=== PATIENT | male | born 1940 | race Caucasian/White ===

== ENCOUNTER 2021-02-19 13:49 | Outpatient (CLI) | payer MEDICARE, SELFPAY ==
[~2021-02-19] VITALS: Ht 182.9 cm; Wt 87.3 kg
[2021-02-19 14:09] VITALS: BP 142/85
[2021-02-19] MEDS ORDERED: ALBUTEROL 90 MCG/ACT 8GM HFA INHALER INH PRN (14:45)
[2021-02-19] MEDS ORDERED: NS 1,000 ML IV SCH (14:45)
[2021-02-19] MEDS ORDERED: methylPREDNISolone 125MG 2ML VIAL IV PRN (14:45)
[2021-02-19] MEDS ORDERED: ALBUTEROL SULFATE 2.5 MG/0.5 ML INH NEB SOLN INH PRN (14:45)
[2021-02-19] MEDS ORDERED: diphenhydrAMINE 50MG/ML VIAL (J1200) IV PRN (14:45)
[2021-02-19] MEDS ORDERED: EPINEPHrine INJ 1 MG/ML 1ML AMP IM PRN (14:45)
[2021-02-19] MEDS ORDERED: ACETAMINOPHEN TAB 650MG DOSE (2X325MG) PO PRN (14:45)
--- NOTE | 2021-02-19 14:54 | CR.PDOC ---
General Date of Consultation: Feb 19, 2021 Consultation REASON FOR CONSULTATION/CHIEF COMPLAINT: Cough, COVID-19 infection HISTORY OF PRESENT ILLNESS: 80-year-old male with a past medical history of atrial fibrillation status post pacemaker currently on Eliquis, developed a nonproductive dry cough on 02/15/2021 subsequently diagnosed with COVID-19. Patient denies any shortness of breath palpitations loss of consciousness lightheadedness dizziness or chest pain. Based on the patient's age he is a candidate for monoclonal antibody infusion. Patient was explained the risks and benefits. We discussed the risk for anaphylaxis which can be life-threatening. Patient verbalized understanding of all risks and benefits and consent was signed. Patient's vital signs were reviewed he was saturating 100% on room air was normotensive and not tachycardic. He was afebrile at the time of my examination. ALLERGIES: Please see below. HOME MEDICATIONS: Please see below. PAST MEDICAL HISTORY: atrial fibrillation s/p pacemaker, on eliquis PAST SURGICAL HISTORY: inguinal hernia repair with mesh FAMILY HISTORY: reviewed with patient, reported no family history SOCIAL HISTORY: Patient denies smoking Patient denies etoh use Patient denies illicit drug use REVIEW OF SYSTEMS: 10 point ROS was conducted, relevant findings were noted in the HPI PHYSICAL EXAMINATION: VITAL SIGNS: please see below General: NAD, comfortable HEENT: PERRLA, EOMI, sclerae clear Neck: supple, normal ROM, no JVD Respiratory: lungs CTAB, no wheeze, no rales, no crackles CVS: RRR, normal S1, S2, no murmurs Abdo: soft, no masses, no hepatosplenomegaly, BS+, no rebound tenderness Extremities: no edema, pulses 2+ MSK: no joint deformities, normal ROM Neuro: no focal neuro deficits, moving all 4 extremities, CN2-12 intact. Strength 5/5 in all 4 extremities. No nystagmus. Psych: calm, cooperative, AAO x 3 LABORATORY DATA: Please see below. ASSESSMENT/PLAN: COVID-19 infection: Given the patient's age of 80 he is a candidate for monoclonal antibody infusion. Risks and benefits were explained, including risk of anaphylaxis. Patient verbalized understanding. Consent was signed. At the time of the infusion patient was afebrile normotensive and saturating 99% on room air. Bamlanivimab infusion was ordered. Patient will be monitored after infusion to ensure tolerance to infusion. Plan to DC home after infusion and to f/u with primary care physician. Vital Signs/I&O Vital Signs Date Time Temp Pulse Resp B/P (MAP) Pulse Ox O2 Delivery O2 Flow Rate FiO2 02/19/21 14:24 Room Air 02/19/21 14:09 97.3 82 18 142/85 (104) 100 MADELEINE ANDERSON MD Feb 19, 2021 14:54
[2021-02-19 15:22] VITALS: BP 142/85
[2021-02-19 15:53] VITALS: BP 123/80
[2021-02-19] MEDS ORDERED: BAMLANIVIMAB 700 MG, ETESEVIMAB 1,400 MG in NS 250 ML IV ONE (16:00)
[2021-02-19 16:28] VITALS: BP 130/70
[2021-02-19 17:39] VITALS: BP 136/84
== END 2021-02-19 17:45 | disposition home or self-care (01) ==
LOC: M OPCLI4 13:49 → M 4MAIN 14:07 → M OPCLI4 17:45
PROVIDERS: ATTEND General Practice
DX: U07.1 COVID-19 (principal)